=== PATIENT | female | born 1995 | race Caucasian/White ===

== ENCOUNTER 2017-09-06 09:47 | Emergency (ER) | payer OTHER ==
[~2017-09-06 09:47] MED LIST: CEPH500T7 PO; ETHI1TAB20 PO
[2017-09-06] MEDS ORDERED: ESCI20TA38 PO (09:57)
--- NOTE | 2017-09-06 09:59 | ER Report ---
History and Physical Time Seen By MD: 09:59 Hx. of Stated Complaint: PT HAS HAD CHEST AND UPPER BACK PAIN WITH BREATHING DIFFICULTY FOR 1 WEEK. MOSTLY BOTHERED BY RESP SYMOPTOMS. SLIGHT COUGH HPI/ROS Upper chest and back pain. Mild URI symptoms. Reports pleuritic chest pain . No family history of sudden cardiac . No PE risk factors. No fever/ chills. Remainder of the 14 system rev: Yes Allergies: Coded Allergies: diphenhydramine (Verified Allergy, Unknown, 09/06/17) Home Meds Reported Medications Escitalopram Oxalate (LEXAPRO) 20 Mg Tablet, 5 MG PO QDAY, TAB 09/06/17 Ethinyl Estradiol/Drospirenone (OCELLA 3 MG-0.03 MG TABLET) 1 Each Tablet, 1 EACH PO 01/30/16 Discontinued Scripts Cephalexin 500 Mg Tab (KEFLEX 500 MG TAB) 500 Mg Tablet, 500 MG PO TID, #15 TAB Prov:GERMAIN HERNANDEZ MD 01/30/16 Reviewed Nurses Notes: Yes Old Medical Records Reviewed: Yes Hx Smoking: No Hx Substance Use Disorder: No Hx Alcohol Use: No Constitutional Vital Sign - Last 24 Hours 09/06/17 09/06/17 09/06/17 09/06/17 09:50 09:53 10:00 10:17 Temp 98.0 Pulse 62 55 Resp 20 9 B/P (MAP) 117/76 117/76 (90) 113/84 (94) Pulse Ox 94 97 O2 Delivery Room Air 09/06/17 09/06/17 09/06/17 09/06/17 10:47 11:17 11:30 11:45 Pulse 55 57 55 Resp 9 14 14 B/P (MAP) 107/64 (78) Pulse Ox 97 100 100 09/06/17 09/06/17 09/06/17 09/06/17 12:00 12:15 12:30 12:45 Pulse 62 65 62 67 Resp 40 14 20 11 B/P (MAP) 102/78 (86) 112/72 (85) Pulse Ox 99 96 98 99 09/06/17 12:54 B/P (MAP) 94/72 (79) Physical Exam GE; Well appearing in NAD HEENT: PERRL CV: RRR, no m/r/g Chest: TTP at left sternun where ribs meet sternum Lungs: cta b/l Abdomen: soft, NTND Medical Decision Making Data Points Result Diagram: 09/06/17 1011 09/06/17 1011 Laboratory Hematology Test 09/06/17 10:11 Red Blood Count 5.26 M/uL (4.17-5.56) Mean Corpuscular Volume 88.1 fL (80.0-96.0) Mean Corpuscular Hemoglobin 30.4 pg (26.0-33.0) Mean Corpuscular Hemoglobin Concent 34.5 g/dL (32.0-36.0) Red Cell Distribution Width 13.5 % (11.5-14.5) Mean Platelet Volume 9.3 fL (7.2-11.1) Neutrophils (%) (Auto) 52.6 % (39.4-72.5) Lymphocytes (%) (Auto) 40.4 % (17.6-49.6) Monocytes (%) (Auto) 5.3 % (4.1-12.4) Eosinophils (%) (Auto) 1.0 % (0.4-6.7) Basophils (%) (Auto) 0.7 % (0.3-1.4) Nucleated RBC Relative Count (auto) 0.1 /100WBC Neutrophils # (Auto) 3.5 K/uL (2.0-7.4) Lymphocytes # (Auto) 2.7 K/uL (1.3-3.6) Monocytes # (Auto) 0.4 K/uL (0.3-1.0) Eosinophils # (Auto) 0.1 K/uL (0.0-0.5) Basophils # (Auto) 0.0 K/uL (0.0-0.1) Nucleated RBC Absolute Count (auto) 0.00 K/uL D-Dimer Quantitative (PE/DVT) 0.36 ug/ml (0-0.50) Sodium Level 139 mmol/L (137-145) Potassium Level 3.8 mmol/L (3.5-5.0) Chloride Level 100 mmol/L (98-107) Carbon Dioxide Level 25 mmol/L (22-31) Blood Urea Nitrogen 12 mg/dl (7-18) Creatinine 1.00 mg/dl (0.52-1.04) Glomerular Filtration Rate Calc > 60.0 Random Glucose 93 mg/dl (75-110) Calcium Level 10.0 mg/dl (8.4-10.2) Total Bilirubin 0.5 mg/dl (0.2-1.3) Aspartate Amino Transf (AST/SGOT) 38 U/L (0-35) Alanine Aminotransferase (ALT/SGPT) 30 U/L (0-56) Alkaline Phosphatase 75 U/L (0-126) Troponin I < 0.012 ng/ml Total Protein 8.1 gm/dl (6.3-8.2) Albumin 4.5 g/dl (3.5-5.0) Human Chorionic Gonadotropin, Qual Negative (NEGATIVE) Chemistry Test 09/06/17 10:11 White Blood Count 6.7 k/uL (4.5-11.0) Red Blood Count 5.26 M/uL (4.17-5.56) Hemoglobin 16.0 g/dL (12.0-16.0) Hematocrit 46.3 % (34.0-47.0) Mean Corpuscular Volume 88.1 fL (80.0-96.0) Mean Corpuscular Hemoglobin 30.4 pg (26.0-33.0) Mean Corpuscular Hemoglobin Concent 34.5 g/dL (32.0-36.0) Red Cell Distribution Width 13.5 % (11.5-14.5) Platelet Count 246 K/uL (150-450) Mean Platelet Volume 9.3 fL (7.2-11.1) Neutrophils (%) (Auto) 52.6 % (39.4-72.5) Lymphocytes (%) (Auto) 40.4 % (17.6-49.6) Monocytes (%) (Auto) 5.3 % (4.1-12.4) Eosinophils (%) (Auto) 1.0 % (0.4-6.7) Basophils (%) (Auto) 0.7 % (0.3-1.4) Nucleated RBC Relative Count (auto) 0.1 /100WBC Neutrophils # (Auto) 3.5 K/uL (2.0-7.4) Lymphocytes # (Auto) 2.7 K/uL (1.3-3.6) Monocytes # (Auto) 0.4 K/uL (0.3-1.0) Eosinophils # (Auto) 0.1 K/uL (0.0-0.5) Basophils # (Auto) 0.0 K/uL (0.0-0.1) Nucleated RBC Absolute Count (auto) 0.00 K/uL D-Dimer Quantitative (PE/DVT) 0.36 ug/ml (0-0.50) Glomerular Filtration Rate Calc > 60.0 Calcium Level 10.0 mg/dl (8.4-10.2) Total Bilirubin 0.5 mg/dl (0.2-1.3) Aspartate Amino Transf (AST/SGOT) 38 U/L (0-35) Alanine Aminotransferase (ALT/SGPT) 30 U/L (0-56) Alkaline Phosphatase 75 U/L (0-126) Troponin I < 0.012 ng/ml Total Protein 8.1 gm/dl (6.3-8.2) Albumin 4.5 g/dl (3.5-5.0) Human Chorionic Gonadotropin, Qual Negative (NEGATIVE) Coagulation Test 09/06/17 10:11 D-Dimer Quantitative (PE/DVT) 0.36 ug/ml EKG/Imaging Monitor Interpretation: Normal Sinus Rhythm Imaging CT chest: no PE, normal lungs, no pneumonia ED Course/Re-evaluation ED Course Normal EKG, no family history of early cardiac disease/. No PE on CT. Improved with NSAIDs. Pain reproduced with palpation. Likely costochondritis Decision to Disposition Date: Sep 06, 2017 Decision to Disposition Time: 12:53 Depart Departure Latest Vital Signs Vital Signs Date Time Temp Pulse Resp B/P (MAP) Pulse Ox O2 Delivery O2 Flow Rate FiO2 09/06/17 12:54 94/72 (79) 09/06/17 12:45 67 11 99 09/06/17 09:50 98.0 Room Air Impression: Primary Impression: Acute costochondritis Condition: Improved Disposition: HOME OR SELF-CARE Patient Instructions: Costochondritis (ED) GIORGI WINN MD Sep 06, 2017 09:59
[2017-09-06] MEDS ORDERED: NS(*) 0.9% 500 ML BAG 500 ML IV ONE (11:08)
[2017-09-06] MEDS ORDERED: KETOROLAC 30 MG/ML VIAL IVP ONE (11:10)
--- NOTE | 2017-09-06 11:19 | EKG ---
FACILITY: [facility] PATIENT NAME: NANCY SIMS : [id number] MR: [id number] V: [id number] EXAM DATE: ORDERING PHYSICIAN: GIORGI WINN TECHNOLOGIST: GRACE Villela Reason : CP Blood Pressure : / mmHG Vent. Rate : 053 BPM Atrial Rate : 053 BPM P-R Int : 120 ms QRS Dur : 086 ms QT Int : 462 ms P-R-T Axes : 027 093 065 degrees QTc Int : 433 ms Sinus bradycardia with sinus arrhythmia Rightward axis Nonspecific ST findings Borderline ECG No previous ECGs available Confirmed by ZANA WATSON ([id number] on 09/06/2017 5:03:02 PM Referred By: ER Confirmed By:ZANA WATSON
[2017-09-06 11:23] LABS: PLATELET COUNT, AUTOMATED 246 K/uL (150-450)
--- NOTE | 2017-09-06 12:11 | RADIOLOGY IMAGING REPORT ---
FACILITY: [facility] PATIENT NAME: Brandi Box : 1995 MR: [id number] V: [id number] EXAM DATE: [id number] ORDERING PHYSICIAN: GIORGI WINN TECHNOLOGIST: [place] [facility] [place]i Box : 1995 Visit/Account:[id number] Date of Sevice: 09/06/2017 EXAMINATION: Chest radiographs 2 views HISTORY: Chest pain. Exercise-induced asthma. COMPARISON: None. FINDINGS: PA and lateral views of the chest are submitted. Lines/tubes: None. Lungs/pleura: No focal consolidation or pleural effusion. Pulmonary vascularity is within normal downing its. No evidence of pneumothorax. Heart: Normal heart size. Mediastinum: Negative. Bony structures/body wall: Negative. IMPRESSION: No radiographic evidence of acute cardiopulmonary disease. Report Dictated By: Temo Galeas MD at 09/06/2017 12:05 PM Report E-Signed By: Temo Galeas MD at 09/06/2017 12:07 PM WSN:[id number]
[2017-09-06 12:54] VITALS: BP 94/72
== END 2017-09-06 13:00 | disposition home or self-care (01) ==
LOC: ER 09:58
DX: M94.0 Chondrocostal junction syndrome [Tietze] (principal)
CPT/HCPCS: 71046; 84484; 84703; 85025; 85379; 93005; 99284; J1885; J7040; 82040; 82247; 82310; 82374; 82435; 82565; 82947; 84075; 84132; 84155; 84295; 84450; 84460; 84520